=== PATIENT | female | born 1940 | race Two or more races ===

== ENCOUNTER 2025-05-03 07:52 | Inpatient (IN) | payer MEDICARE ==
[~2025-05-03] VITALS: Ht 160 cm; Wt 50.8 kg
[2025-05-03 08:27] LABS: PLATELET COUNT (AUTO) 251 K/uL (150-450); RED BLOOD CELL COUNT(AUTO) 3.72 MIL/uL (4.0-5.2); RED CELL DISTRIBUTION WIDTH 13.2 % (11.5-15.0); WHITE BLOOD COUNT (AUTO) 6.3 K/uL (4.3-11.0)
[2025-05-03 08:34] LABS: CALCIUM, SERUM 9.2 mg/dL (8.5-10.1); CREATININE 1.4 mg/dL (0.6-1.3); SODIUM SERUM 142 mmol/L (136-145); UREA NITROGEN, BLOOD 35 mg/dL (7-18)
[2025-05-03] MEDS ORDERED: DILT-32 PO (09:09)
[2025-05-03] MEDS ORDERED: ACETAMINOPHEN 325 MG TABLET PO PRN (10:30)
[2025-05-03] MEDS ORDERED: MAGNESIUM HYDROXIDE 30 ML UDC PO PRN (10:30)
[2025-05-03] MEDS ORDERED: MAG HYDROX/AL HYDROX/SIMETH 30 ML UDC PO PRN (10:30)
[2025-05-03] MEDS ORDERED: ONDANSETRON HCL/PF 4 MG/2 ML VIAL IVP PRN (10:30)
[2025-05-03 10:37] VITALS: O2SAT 98
[2025-05-03] MEDS: METOPROLOL TARTRATE 50 MG TABLET PO SCH (12:00)
[2025-05-03] MEDS: ASPIRIN 81 MG TAB.CHEW PO SCH (13:48)
[2025-05-03] MEDS: ENOXAPARIN SODIUM 60 MG/0.6 ML DISP.SYRIN SQ SCH (13:48)
[2025-05-03] MEDS: ATORVASTATIN 10 MG TABLET PO SCH (13:48)
[2025-05-03] MEDS: IV NS 0.9% 1,000 ML IV PRN (13:49)
[2025-05-03 20:00] VITALS: BP 118/46; TEMP 97.3; O2SAT 97
[2025-05-04] VITALS: BP 115/53; TEMP 97.7; O2SAT 97
[2025-05-04 05:00] VITALS: BP 124/44; TEMP 97.6; O2SAT 97
[2025-05-04 07:10] LABS: PLATELET COUNT (AUTO) 196 K/uL (150-450); RED BLOOD CELL COUNT(AUTO) 3.18 MIL/uL (4.0-5.2); RED CELL DISTRIBUTION WIDTH 14.4 % (11.5-15.0); WHITE BLOOD COUNT (AUTO) 4.9 K/uL (4.3-11.0)
[2025-05-04 07:17] LABS: ASPARTATE AMINOTRANSFERASE 44.0 U/L (15-37); CALCIUM, SERUM 8.2 mg/dL (8.5-10.1); CREATININE 1.3 mg/dL (0.6-1.3); PHOSPHORUS 3.3 mg/dL (2.5-4.9); SODIUM SERUM 143.0 mmol/L (136-145); TOTAL PROTEIN, SERUM 5.9 g/dL (6.4-8.2); UREA NITROGEN, BLOOD 31.0 mg/dL (7-18)
[2025-05-04 07:24] LABS: LDL 89.0 mg/dL (0-99)
[2025-05-04 07:30] VITALS: BP 127/42; TEMP 98.1; O2SAT 96
[2025-05-04] MEDS: PANTOPRAZOLE 40 MG TABLET.DR PO SCH (07:30)
[2025-05-04] MEDS: ATORVASTATIN 40 MG TABLET PO SCH (09:00)
[2025-05-04] MEDS ORDERED: IV NS 0.9% 250 ML IV ONE (09:58)
[2025-05-04] MEDS ORDERED: IOHEXOL-350 100 ML VIAL IV ONE (09:58)
[2025-05-04] MEDS ORDERED: NITROGLYCERIN 0.4 MG/TAB BOTTLE ONE (10:30)
[2025-05-04] MEDS: NITROGLYCERIN 0.4 MG/TAB BOTTLE SL ONE (10:31)
[2025-05-04 15:54] LABS: CREATININE, URINE 35.6 MG/DL (30.0-125.0); URINE SODIUM, RANDOM 52.0 mmol/l (40-220); URINE TOTAL PROTEIN 5.7 mg/dL (0-11.9)
[2025-05-04 16:00] VITALS: BP 141/50; TEMP 97.9; O2SAT 96
[2025-05-04 16:19] LABS: APPEARANCE,URINE CLEAR (CLEAR); BLOOD, URINE Negative Ery/uL (NEGATIVE); LEUKOCYTE ESTERASE ,URINE Negative (NEGATIVE); NITRITE, URINE NEGATIVE (NEGATIVE); UGLUCOSE Negative (NEGATIVE)
[2025-05-04 17:42] LABS: EOSINOPHIL,URINE None Seen
[2025-05-04 20:00] VITALS: BP 150/52; TEMP 97.5; O2SAT 95
[2025-05-05] VITALS: BP 151/59; TEMP 97.3; O2SAT 95
[2025-05-05 04:00] VITALS: BP 144/53; TEMP 97.7; O2SAT 94
[2025-05-05 07:51] LABS: PLATELET COUNT (AUTO) 215 K/uL (150-450); RED BLOOD CELL COUNT(AUTO) 3.34 MIL/uL (4.0-5.2); RED CELL DISTRIBUTION WIDTH 13.4 % (11.5-15.0); WHITE BLOOD COUNT (AUTO) 5.3 K/uL (4.3-11.0)
[2025-05-05 07:56] LABS: CREATINE KINASE, TOTAL 50.0 U/L (26-192)
[2025-05-05 08:00] VITALS: BP 161/71; TEMP 97.7; O2SAT 94
[2025-05-05 08:00] LABS: ASPARTATE AMINOTRANSFERASE 204.0 U/L (15-37); CALCIUM, SERUM 8.4 mg/dL (8.5-10.1); CREATININE 1.3 mg/dL (0.6-1.3); PHOSPHORUS 3.1 mg/dL (2.5-4.9); SODIUM SERUM 139.0 mmol/L (136-145); TOTAL PROTEIN, SERUM 6.3 g/dL (6.4-8.2); UREA NITROGEN, BLOOD 26.0 mg/dL (7-18)
[2025-05-05] MEDS: METOPROLOL SUCCINATE 50 MG TAB.SR.24H PO SCH (08:30)
[2025-05-05 12:00] VITALS: BP 150/75; TEMP 97.9; O2SAT 96
[2025-05-05] MEDS ORDERED: METO50TA7 PO (12:07)
[2025-05-05] MEDS ORDERED: METO-358 PO (12:07)
[2025-05-05] MEDS ORDERED: ASPI-1169 PO ×2 (12:07)
[2025-05-05] MEDS ORDERED: ATOR40TA PO ×2 (12:07)
[2025-05-06 10:09] LABS: PTH, INTACT 53 pg/mL (15-65)
== END 2025-05-05 14:30 | disposition home health service (06) | DRG 280 ==
LOC: ER 07:53 → TELE 10:13
PROVIDERS: ADMIT Nurse Practitioner Family; ATTEND Nurse Practitioner Family
DX: I21.4 Non-ST elevation (NSTEMI) myocardial infarction (principal); N17.0 Acute kidney failure with tubular necrosis; I10 Essential (primary) hypertension; D64.9 Anemia, unspecified; I25.10 Atherosclerotic heart disease of native coronary artery without angina pectoris; M89.8X9 Other specified disorders of bone, unspecified site; R73.9 Hyperglycemia, unspecified
CPT/HCPCS: 36415; 71045-TC; 75574; 80048-TC; 80053-TC; 80061-TC; 82550-TC; 82570-TC; 83735-TC; 83970; 84100-TC; 84155; 84165; 84300-TC; 84484-TC; 85025-TC; 93307-TC; A4223; G0378; J1650; J7030; J7050; Q9967